=== PATIENT | male | born 1955 | race Caucasian/White ===

== ENCOUNTER 2016-11-10 20:16 | Emergency (ER) | payer OTHER ==
[~2016-11-10] VITALS: Ht 172.7 cm; Wt 81.6 kg
[2016-11-10 20:37] LABS: BASO % 0.5 % (0.0-1.0); EOS # 0.4 10*3/uL (0.0-0.4); EOS % 4.4 % (1.0-4.0); HEMATOCRIT 40.3 % (42.0-52.0); HEMOGLOBIN 13.5 g/dl (14.0-18.0); LYMPH # 3.3 10*3/uL (1.3-4.4); LYMPH % 40.3 % (27.0-41.0); MEAN CELL VOLUME 91.6 fl (80.0-94.0); MEAN CORPUSCULAR HGB 30.7 pg (27.0-31.0); MEAN CORPUSCULAR HGB CONC 33.5 g/dl (33.0-37.0); MEAN PLATELET VOLUME 9.6 fl (9.6-12.3); MONO # 0.7 10*3/uL (0.1-1.0); MONO % 8.2 % (3.0-9.0); NEUT # 3.8 10*3/uL (2.3-7.9); NEUT % 46.2 % (47.0-73.0); PLATELET COUNT AUTOMATED 200 10*3/uL (130-400); RED CELL DISTRI WIDTH 12.9 % (0-14.5); WHITE BLOOD COUNT 8.1 10*3/uL (4.8-10.8)
[2016-11-10 20:46] LABS: PROTHROMBIN TIME 10.7 SECONDS (9.0-12.4)
[2016-11-10 20:54] LABS: ALBUMIN 3.9 gm/dl (3.1-4.5); ALKALINE PHOSPHATASE 42 U/L (45-117); BILIRUBIN, TOTAL 0.3 mg/dl (0.2-1.0); BUN 14 mg/dl (7-24); CARBON DIOXIDE 22 mmol/L (21-32); CHLORIDE 100 mmol/L (98-107); EST GLOM FILT AFRICAN AMERICAN > 60 ml/min; GLUCOSE 77 mg/dL (65-99); POTASSIUM 3.8 mmol/L (3.5-5.1); SGOT/AST 18 IU/L (3-35); SGPT/ALT 19 U/L (12-78); SODIUM 136 mmol/L (136-145); TOTAL PROTEIN 7.2 gm/dL (6.4-8.2)
[2016-11-10 20:55] LABS: TROPONIN I < 0.015 ng/ml (<0.045)
[2016-11-10 21:33] LABS: BILIRUBIN NEGATIVE (NEGATIVE); BLOOD NEGATIVE (NEGATIVE); CLARITY CLEAR (CLEAR); COLOR YELLOW (YELLOW); GLUCOSE NEGATIVE (NEGATIVE); KETONE NEGATIVE (NEGATIVE); LEUKO ESTERASE NEGATIVE (NEGATIVE); NITRITE NEGATIVE (NEGATIVE); PH 5.5 (5.0-9.0); PROTEIN NEGATIVE (NEGATIVE); SPECIFIC GRAVITY <= 1.005 (1.005-1.030); UROBILINOGEN 0.2 E.U./dl (0.2-1.0)
[2016-11-10 21:41] LABS: RBC 0-2 rbc/hpf (0-2); URINE AMPHETAMINES < 1000 (1000ng/ml); URINE BARBITURATES < 200 (200ng/ml); URINE COCAINE < 300 (300ng/ml)
== END 2016-11-10 22:02 | disposition left against medical advice (07) ==
LOC: ED 20:16
PROVIDERS: Emergency Medicine Emergency Medical Services
DX: S09.93XA Unspecified injury of face, initial encounter (principal); F10.129 Alcohol abuse with intoxication, unspecified; W18.39XA Other fall on same level, initial encounter; Y93.9 Activity, unspecified; Y92.89 Other specified places as the place of occurrence of the external cause; Y99.9 Unspecified external cause status

== ENCOUNTER 2017-05-09 15:30 | Emergency (ER) | payer OTHER ==
[~2017-05-09] VITALS: Ht 182.8 cm; Wt 77.1 kg
[2017-05-09 15:52] LABS: BASO % 0.3 % (0.0-1.0); EOS # 0.3 10*3/uL (0.0-0.4); EOS % 2.3 % (1.0-4.0); HEMATOCRIT 41.4 % (42.0-52.0); HEMOGLOBIN 14.3 g/dl (14.0-18.0); LYMPH # 2.2 10*3/uL (1.3-4.4); LYMPH % 18.3 % (27.0-41.0); MEAN CELL VOLUME 90.8 fl (80.0-94.0); MEAN CORPUSCULAR HGB 31.4 pg (27.0-31.0); MEAN CORPUSCULAR HGB CONC 34.5 g/dl (33.0-37.0); MEAN PLATELET VOLUME 10.5 fl (9.6-12.3); MONO # 1.3 10*3/uL (0.1-1.0); MONO % 10.5 % (3.0-9.0); NEUT # 8.4 10*3/uL (2.3-7.9); NEUT % 68.4 % (47.0-73.0); PLATELET COUNT AUTOMATED 235 10*3/uL (130-400); RED BLOOD COUNT 4.56 10*6/uL (4.50-5.90); RED CELL DISTRI WIDTH 12.8 % (0-14.5); WHITE BLOOD COUNT 12.3 10*3/uL (4.8-10.8)
[2017-05-09 16:23] LABS: ACT PARTIAL THROMBO TIME 24.4 SECONDS (20.8-31.5)
[2017-05-09 16:28] LABS: ALBUMIN 4.2 gm/dl (3.1-4.5); ALKALINE PHOSPHATASE 41 U/L (45-117); BUN 29 mg/dl (7-24); CHLORIDE 99 mmol/L (98-107); CREATININE 1.75 mg/dL (0.70-1.30); LIPASE 167 U/L (73-393); POTASSIUM 4.2 mmol/L (3.5-5.1); SGOT/AST 23 IU/L (3-35); SGPT/ALT 22 U/L (12-78); SODIUM 133 mmol/L (136-145); TOTAL PROTEIN 7.3 gm/dL (6.4-8.2)
[2017-05-09 16:29] LABS: ACETAMINOPHEN (TYLENOL) < 2.0 ug/ml (10-30)
[2017-05-09 16:36] LABS: ETHYL ALCOHOL < 3.0 mg/dl (<3)
[2017-05-09 17:20] LABS: BILIRUBIN NEGATIVE (NEGATIVE); BLOOD 2+ (NEGATIVE); CLARITY CLEAR (CLEAR); COLOR YELLOW (YELLOW); GLUCOSE NEGATIVE (NEGATIVE); KETONE NEGATIVE (NEGATIVE); LEUKO ESTERASE NEGATIVE (NEGATIVE); NITRITE NEGATIVE (NEGATIVE); PH 5.5 (5.0-9.0); UROBILINOGEN 0.2 E.U./dl (0.2-1.0)
[2017-05-09] MEDS ORDERED: Bactrim DS PO (17:38)
[2017-05-09] MEDS ORDERED: PYRIDIUM200 M1 PO (17:38)
== END 2017-05-09 18:56 | disposition home or self-care (01) ==
LOC: ED 15:30
PROVIDERS: Nurse Practitioner Family
DX: R33.9 Retention of urine, unspecified (principal); R03.0 Elevated blood-pressure reading, without diagnosis of hypertension

== ENCOUNTER 2017-05-22 09:28 | Emergency (ER) | payer OTHER ==
[~2017-05-22] VITALS: Ht 182.8 cm; Wt 82.6 kg
[~2017-05-22 09:28] MED LIST: Bactrim DS PO; PYRIDIUM200 M1 PO
[2017-05-22 10:30] LABS: BILIRUBIN NEGATIVE (NEGATIVE); BLOOD NEGATIVE (NEGATIVE); CLARITY CLEAR (CLEAR); COLOR YELLOW (YELLOW); GLUCOSE NEGATIVE (NEGATIVE); KETONE NEGATIVE (NEGATIVE); LEUKO ESTERASE NEGATIVE (NEGATIVE); NITRITE NEGATIVE (NEGATIVE); SPECIFIC GRAVITY <= 1.005 (1.005-1.030); UROBILINOGEN 0.2 E.U./dl (0.2-1.0)
[2017-05-22 10:47] LABS: BACTERIA TRACE
[2017-05-22] MEDS ORDERED: Bactrim DS PO (10:54)
== END 2017-05-22 11:21 | disposition home or self-care (01) ==
LOC: ED 09:28
PROVIDERS: Nurse Practitioner Family
DX: R33.9 Retention of urine, unspecified (principal); R03.0 Elevated blood-pressure reading, without diagnosis of hypertension; F10.10 Alcohol abuse, uncomplicated; Z79.899 Other long term (current) drug therapy

== ENCOUNTER → 2017-05-29 | Outpatient (CLI) | payer OTHER ==
[2017-05-29 12:01] LABS: BASO % 0.9 % (0.0-1.0); EOS # 0.2 10*3/uL (0.0-0.4); EOS % 4.7 % (1.0-4.0); HEMOGLOBIN 12.1 g/dl (14.0-18.0); LYMPH # 1.4 10*3/uL (1.3-4.4); LYMPH % 30.3 % (27.0-41.0); MEAN CELL VOLUME 94.1 fl (80.0-94.0); MEAN CORPUSCULAR HGB CONC 31.8 g/dl (33.0-37.0); MEAN PLATELET VOLUME 10.2 fl (9.6-12.3); MONO # 0.4 10*3/uL (0.1-1.0); MONO % 7.9 % (3.0-9.0); NEUT # 2.6 10*3/uL (2.3-7.9); PLATELET COUNT AUTOMATED 212 10*3/uL (130-400); RED BLOOD COUNT 4.04 10*6/uL (4.50-5.90); RED CELL DISTRI WIDTH 12.3 % (0-14.5); WHITE BLOOD COUNT 4.7 10*3/uL (4.8-10.8)
[2017-05-29 12:53] LABS: ALBUMIN 4.2 gm/dl (3.1-4.5); CREATININE 2.28 mg/dL (0.70-1.30); POTASSIUM 3.9 mmol/L (3.5-5.1); TOTAL PROTEIN 7.7 gm/dL (6.4-8.2)
== END | disposition home or self-care (01) ==
LOC: LAB 01:50 → RESCLI 01:50
DX: D40.0 Neoplasm of uncertain behavior of prostate (principal); R31.9 Hematuria, unspecified

== ENCOUNTER → 2017-06-05 | Outpatient (CLI) | payer OTHER | END | disposition home or self-care (01) | LOC: CT 10:29 | DX: N13.30 Unspecified hydronephrosis (principal); K44.9 Diaphragmatic hernia without obstruction or gangrene; N13.4 Hydroureter; K42.9 Umbilical hernia without obstruction or gangrene ==

== ENCOUNTER 2017-06-15 11:25 | Emergency (ER) | payer OTHER ==
[~2017-06-15] VITALS: Ht 167.6 cm; Wt 83.9 kg
[2017-06-15] MEDS ORDERED: PERCOCET 5-3251 EACH PO (11:36)
[2017-06-15] MEDS ORDERED: LISINOPRIL5 MG PO (11:36)
[2017-06-15] MEDS ORDERED: TAMSULOSIN HCL0.4 MG PO (11:37)
[2017-06-15] MEDS ORDERED: PROSCAR5 M1 PO (11:37)
== END 2017-06-15 12:28 | disposition home or self-care (01) ==
LOC: ED 11:25
DX: Z46.6 Encounter for fitting and adjustment of urinary device (principal); R03.0 Elevated blood-pressure reading, without diagnosis of hypertension; Z79.899 Other long term (current) drug therapy

== ENCOUNTER → 2017-06-24 | Outpatient (CLI) | payer OTHER ==
[~2017-06-24] MED LIST changes: +LISINOPRIL5 MG PO; +PERCOCET 5-3251 EACH PO; +PROSCAR5 M1 PO; +TAMSULOSIN HCL0.4 MG PO
[2017-06-24 14:43] LABS: BASO # 0.1 10*3/uL (0.0-0.1); BASO % 0.6 % (0.0-1.0); EOS # 0.8 10*3/uL (0.0-0.4); EOS % 9.8 % (1.0-4.0); HEMATOCRIT 40.9 % (42.0-52.0); HEMOGLOBIN 13.4 g/dl (14.0-18.0); LYMPH # 2.2 10*3/uL (1.3-4.4); LYMPH % 26.7 % (27.0-41.0); MEAN CELL VOLUME 93.4 fl (80.0-94.0); MEAN CORPUSCULAR HGB 30.6 pg (27.0-31.0); MEAN CORPUSCULAR HGB CONC 32.8 g/dl (33.0-37.0); MEAN PLATELET VOLUME 10.4 fl (9.6-12.3); MONO # 0.7 10*3/uL (0.1-1.0); NEUT # 4.6 10*3/uL (2.3-7.9); NEUT % 54.4 % (47.0-73.0); PLATELET COUNT AUTOMATED 293 10*3/uL (130-400); RED BLOOD COUNT 4.38 10*6/uL (4.50-5.90); RED CELL DISTRI WIDTH 12.8 % (0-14.5); WHITE BLOOD COUNT 8.4 10*3/uL (4.8-10.8)
[2017-06-24 15:02] LABS: CREATININE 1.85 mg/dL (0.70-1.30); POTASSIUM 5.6 mmol/L (3.5-5.1); TOTAL PROTEIN 7.5 gm/dL (6.4-8.2)
[2017-06-24 15:08] LABS: VITAMIN D, 25-HYDROXY 17.7 ng/mL (30-100)
[2017-06-24 15:31] LABS: FREE T4 0.8 ng/dl (0.76-1.46)
== END | disposition home or self-care (01) ==
LOC: RESCLI 03:00
PROVIDERS: Internal Medicine
DX: N13.8 Other obstructive and reflux uropathy (principal); N40.1 Benign prostatic hyperplasia with lower urinary tract symptoms; K44.9 Diaphragmatic hernia without obstruction or gangrene; I10 Essential (primary) hypertension

== ENCOUNTER → 2017-07-03 | Outpatient (CLI) | payer OTHER ==
[2017-07-03 13:53] LABS: BASO % 0.5 % (0.0-1.0); EOS # 0.4 10*3/uL (0.0-0.4); EOS % 6.7 % (1.0-4.0); HEMATOCRIT 35.6 % (42.0-52.0); HEMOGLOBIN 12.2 g/dl (14.0-18.0); LYMPH # 1.6 10*3/uL (1.3-4.4); LYMPH % 25.8 % (27.0-41.0); MEAN CELL VOLUME 90.4 fl (80.0-94.0); MEAN CORPUSCULAR HGB CONC 34.3 g/dl (33.0-37.0); MEAN PLATELET VOLUME 9.9 fl (9.6-12.3); MONO # 0.4 10*3/uL (0.1-1.0); MONO % 6.2 % (3.0-9.0); NEUT # 3.8 10*3/uL (2.3-7.9); NEUT % 60.3 % (47.0-73.0); PLATELET COUNT AUTOMATED 225 10*3/uL (130-400); RED BLOOD COUNT 3.94 10*6/uL (4.50-5.90); RED CELL DISTRI WIDTH 12.3 % (0-14.5); WHITE BLOOD COUNT 6.3 10*3/uL (4.8-10.8)
[2017-07-03 14:22] LABS: ALBUMIN 3.9 gm/dl (3.1-4.5); CREATININE 1.62 mg/dL (0.70-1.30); POTASSIUM 3.5 mmol/L (3.5-5.1); TOTAL PROTEIN 6.9 gm/dL (6.4-8.2)
== END | disposition home or self-care (01) ==
LOC: US 06-28 15:00 → LAB 12:47 → US 13:00
PROVIDERS: Urology
DX: N13.30 Unspecified hydronephrosis (principal); N13.2 Hydronephrosis with renal and ureteral calculous obstruction; I10 Essential (primary) hypertension

== ENCOUNTER 2017-08-13 20:43 | Emergency (ER) | payer OTHER ==
[~2017-08-13] VITALS: Ht 172.7 cm; Wt 81.6 kg
[2017-08-13 21:59] LABS: BASO % 0.5 % (0.0-1.0); EOS # 0.3 10*3/uL (0.0-0.4); EOS % 3.9 % (1.0-4.0); HEMATOCRIT 36.9 % (42.0-52.0); HEMOGLOBIN 12.6 g/dl (14.0-18.0); LYMPH # 2.4 10*3/uL (1.3-4.4); LYMPH % 30.3 % (27.0-41.0); MEAN CELL VOLUME 91.1 fl (80.0-94.0); MEAN CORPUSCULAR HGB 31.1 pg (27.0-31.0); MEAN CORPUSCULAR HGB CONC 34.1 g/dl (33.0-37.0); MEAN PLATELET VOLUME 9.9 fl (9.6-12.3); MONO # 0.5 10*3/uL (0.1-1.0); MONO % 6.2 % (3.0-9.0); NEUT # 4.7 10*3/uL (2.3-7.9); NEUT % 58.8 % (47.0-73.0); PLATELET COUNT AUTOMATED 201 10*3/uL (130-400); RED BLOOD COUNT 4.05 10*6/uL (4.50-5.90); RED CELL DISTRI WIDTH 12.8 % (0-14.5); WHITE BLOOD COUNT 7.9 10*3/uL (4.8-10.8)
[2017-08-13 22:15] LABS: ALBUMIN 4.1 gm/dl (3.1-4.5); ALKALINE PHOSPHATASE 43 U/L (45-117); BUN 21 mg/dl (7-24); CHLORIDE 96 mmol/L (98-107); CREATININE 1.21 mg/dL (0.70-1.30); POTASSIUM 3.6 mmol/L (3.5-5.1); SGOT/AST 14 IU/L (3-35); SGPT/ALT 15 U/L (12-78); SODIUM 132 mmol/L (136-145); TOTAL PROTEIN 7.2 gm/dL (6.4-8.2)
[2017-08-13 22:20] LABS: TROPONIN I < 0.015 ng/ml (<0.045)
== END 2017-08-14 09:36 | disposition home or self-care (01) ==
LOC: ED 20:43
PROVIDERS: Emergency Medicine Emergency Medical Services
DX: S00.83XA Contusion of other part of head, initial encounter (principal); F10.129 Alcohol abuse with intoxication, unspecified; Z79.899 Other long term (current) drug therapy; W19.XXXA Unspecified fall, initial encounter; Y93.89 Activity, other specified; Y92.89 Other specified places as the place of occurrence of the external cause; Y99.9 Unspecified external cause status; Y90.9 Presence of alcohol in blood, level not specified

== ENCOUNTER 2018-07-11 09:36 | Emergency (ER) | payer OTHER ==
[~2018-07-11] VITALS: Wt 74.8 kg
[2018-07-11 10:03] LABS: BASO % 0.5 % (0.0-1.0); EOS # 0.5 10*3/uL (0.0-0.4); EOS % 7.8 % (1.0-4.0); HEMATOCRIT 48.7 % (42.0-52.0); LYMPH # 1.6 10*3/uL (1.3-4.4); LYMPH % 24.3 % (27.0-41.0); MEAN CELL VOLUME 94.6 fl (80.0-94.0); MEAN CORPUSCULAR HGB 31.1 pg (27.0-31.0); MEAN CORPUSCULAR HGB CONC 32.9 g/dl (33.0-37.0); MEAN PLATELET VOLUME 10.3 fl (9.6-12.3); MONO # 0.6 10*3/uL (0.1-1.0); MONO % 9.6 % (3.0-9.0); NEUT # 3.7 10*3/uL (2.3-7.9); NEUT % 57.5 % (47.0-73.0); PLATELET COUNT AUTOMATED 197 10*3/uL (130-400); RED BLOOD COUNT 5.15 10*6/uL (4.50-5.90); RED CELL DISTRI WIDTH 12.6 % (0-14.5); WHITE BLOOD COUNT 6.4 10*3/uL (4.8-10.8)
[2018-07-11 10:15] LABS: ALBUMIN 4.2 gm/dl (3.1-4.5); ALKALINE PHOSPHATASE 62 U/L (45-117); BUN 27 mg/dl (7-24); CHLORIDE 104 mmol/L (98-107); CREATININE 1.37 mg/dL (0.70-1.30); POTASSIUM 4.5 mmol/L (3.5-5.1); SGOT/AST 17 IU/L (3-35); SGPT/ALT 23 U/L (12-78); SODIUM 138 mmol/L (136-145)
[2018-07-11] MEDS ORDERED: PROVENTIL HFA6.7 GM INH (10:56)
[2018-07-11] MEDS ORDERED: PREDNISONE20 M1 PO (10:56)
[2018-07-11] MEDS ORDERED: VIBRAMYCIN100 MG PO (10:56)
== END 2018-07-11 11:14 | disposition home or self-care (01) ==
LOC: ED 09:36
PROVIDERS: Emergency Medicine
DX: J40 Bronchitis, not specified as acute or chronic (principal)

== ENCOUNTER 2020-12-03 18:24 | Emergency (ER) | payer OTHER ==
[~2020-12-03] VITALS: Wt 86.2 kg
[~2020-12-03 18:24] MED LIST changes: +PREDNISONE20 M1 PO; +PROVENTIL HFA6.7 GM INH; +VIBRAMYCIN100 MG PO
[2020-12-03] MEDS ORDERED: SEPTDS PO ×2 (18:39→18:50)
== END 2020-12-03 19:02 | disposition home or self-care (01) ==
LOC: ED 18:24
DX: L02.414 Cutaneous abscess of left upper limb (principal); L03.114 Cellulitis of left upper limb; I10 Essential (primary) hypertension; Z79.2 Long term (current) use of antibiotics; Z79.899 Other long term (current) drug therapy

== ENCOUNTER → 2021-02-23 | Outpatient (CLI) | payer OTHER ==
[~2021-02-23] MED LIST changes: +SEPTDS PO
== END | disposition home or self-care (01) ==
LOC: CT 10:00
PROVIDERS: ATTEND Nurse Practitioner Primary Care
DX: R41.0 Disorientation, unspecified (principal)

== ENCOUNTER 2021-10-20 15:38 | Emergency (ER) | payer OTHER ==
[~2021-10-20] VITALS: Ht 182.8 cm; Wt 80.7 kg
[2021-10-20 16:57] LABS: BASO % 0.4 % (0.0-1.0); EOS # 0.3 10*3/uL (0.0-0.4); EOS % 3.4 % (1.0-4.0); HEMATOCRIT 35.9 % (42.0-52.0); LYMPH % 27.7 % (27.0-41.0); MEAN CELL VOLUME 87.6 fl (80.0-94.0); MEAN CORPUSCULAR HGB 28.8 pg (27.0-31.0); MEAN CORPUSCULAR HGB CONC 32.9 g/dl (33.0-37.0); MEAN PLATELET VOLUME 9.4 fl (9.6-12.3); MONO # 0.6 10*3/uL (0.1-1.0); MONO % 8.6 % (3.0-9.0); NEUT # 4.4 10*3/uL (2.3-7.9); NEUT % 59.8 % (47.0-73.0); PLATELET COUNT AUTOMATED 192 10*3/uL (130-400); RED CELL DISTRI WIDTH 13.2 % (0-14.5); WHITE BLOOD COUNT 7.3 10*3/uL (4.8-10.8)
[2021-10-20 17:08] LABS: ACT PARTIAL THROMBO TIME 29.1 SECONDS (20.0-32.1)
[2021-10-20 17:23] LABS: ALKALINE PHOSPHATASE 57 U/L (45-117); BUN 18 mg/dl (7-24); CHLORIDE 103 mmol/L (98-107); CREATININE 1.21 mg/dL (0.70-1.30); POTASSIUM 3.9 mmol/L (3.5-5.1); SGOT/AST 22 IU/L (3-35); SGPT/ALT 25 U/L (12-78); SODIUM 134 mmol/L (136-145); TOTAL PROTEIN 6.8 gm/dL (6.4-8.2)
== END 2021-10-20 18:20 | disposition left against medical advice (07) ==
LOC: ED 15:38
PROVIDERS: Family Medicine
DX: S01.81XA Laceration without foreign body of other part of head, initial encounter (principal); Y08.89XA Assault by other specified means, initial encounter; Y93.89 Activity, other specified; Y92.89 Other specified places as the place of occurrence of the external cause; Y99.8 Other external cause status

== ENCOUNTER → 2023-08-26 | Outpatient (CLI) | payer OTHER | END | disposition home or self-care (01) | LOC: RAD 10:58 | PROVIDERS: ATTEND Internal Medicine | DX: R06.02 Shortness of breath (principal); R05.9 Cough, unspecified ==

== ENCOUNTER → 2023-12-09 | Outpatient (CLI) | payer OTHER | END | disposition home or self-care (01) | LOC: CT 15:43 | PROVIDERS: ATTEND Internal Medicine | DX: S09.90XA Unspecified injury of head, initial encounter (principal); X58.XXXA Exposure to other specified factors, initial encounter; Y93.89 Activity, other specified; Y92.89 Other specified places as the place of occurrence of the external cause; Y99.8 Other external cause status ==

== ENCOUNTER 2024-01-17 16:11 | Emergency (ER) | payer OTHER ==
[~2024-01-17] VITALS: Ht 175.2 cm
[2024-01-17] MEDS ORDERED: Albuterol Sulfate 2.5 MG/3 ML VIAL NEB ONE (16:40)
[2024-01-17 16:52] LABS: BASO # 0.1 10*3/uL (0.0-0.1); BASO % 0.7 % (0.0-1.0); EOS # 1.1 10*3/uL (0.0-0.4); EOS % 12.6 % (1.0-4.0); HEMATOCRIT 42.7 % (42.0-52.0); LYMPH % 22.9 % (27.0-41.0); MEAN CELL VOLUME 96.4 fl (80.0-94.0); MEAN CORPUSCULAR HGB 30.9 pg (27.0-31.0); MEAN CORPUSCULAR HGB CONC 32.1 g/dl (33.0-37.0); MEAN PLATELET VOLUME 9.9 fl (9.6-12.3); MONO # 0.9 10*3/uL (0.1-1.0); NEUT # 4.6 10*3/uL (2.3-7.9); NEUT % 53.6 % (47.0-73.0); PLATELET COUNT AUTOMATED 205 10*3/uL (130-400); RED BLOOD COUNT 4.43 10*6/uL (4.50-5.90); WHITE BLOOD COUNT 8.6 10*3/uL (4.8-10.8)
[2024-01-17 17:10] LABS: BUN 18 mg/dl (9-23); CHLORIDE 105 mmol/L (98-107); POTASSIUM 4.1 mmol/L (3.4-5.1)
[2024-01-17] MEDS ORDERED: LEVOFLOXACIN750 M2 PO (17:24)
[2024-01-17] MEDS ORDERED: VENT7GM INH (17:24)
[2024-01-17] MEDS ORDERED: LEVOFLOXACIN 150 ML IV ONE (17:25)
== END 2024-01-17 18:16 | disposition home or self-care (01) ==
LOC: ED 16:11
PROVIDERS: Emergency Medicine
DX: J18.9 Pneumonia, unspecified organism (principal); Z20.822 Contact with and (suspected) exposure to COVID-19; I10 Essential (primary) hypertension; F10.10 Alcohol abuse, uncomplicated

== ENCOUNTER 2024-05-23 15:26 | Emergency (ER) | payer OTHER ==
[~2024-05-23 15:26] MED LIST changes: +AMLODIPINE BES2.5 MG PO; +AMLODIPINE BESYL5 MG PO; +BREYNA 160-4.10.3 GM INH; +DOXYCYCLINE HY100 M3 PO; +Ipratropium Brom3 ML INH; +LEVOFLOXACIN750 M2 PO; +OMNICEF300 MG PO; +PREDNISONE10 MG PO; +PREDNISONE5 MG PO; +SPIRIVA -- 3018 MCG INH; +VENT7GM INH; +ZITHROMAX250 MG PO
[2024-05-23] MEDS ORDERED: Ondansetron Hydrochloride 4 MG/2 ML VIAL IV ONE (15:50)
[2024-05-23] MEDS ORDERED: SODIUM CHLORIDE 0.9% 1,000 ML IV ONE ×2 (15:50→16:42)
[2024-05-23] MEDS ORDERED: ceFAZolin sodium/sodium chlor 10 ML IV ONE (15:50)
[2024-05-23] MEDS ORDERED: fentaNYL CITRATE/PF 50 MCG/ML SYRINGE IV ONE (15:50)
[2024-05-23] MEDS ORDERED: Tdap Vaccine 0.5 ML SYR (Adult Vaccine) IM ONE (15:50)
[2024-05-23 16:04] LABS: HEMATOCRIT 35.5 % (42.0-52.0); MANUAL DIFF REFLEX YES; MEAN CELL VOLUME 93.4 fl (80.0-94.0); MEAN CORPUSCULAR HGB 31.6 pg (27.0-31.0); MEAN CORPUSCULAR HGB CONC 33.8 g/dl (33.0-37.0); MEAN PLATELET VOLUME 12.4 fl (9.6-12.3); PLATELET COUNT AUTOMATED 373 10*3/uL (130-400); RED CELL DISTRI WIDTH 14.6 % (0-14.5); WHITE BLOOD COUNT 11.9 10*3/uL (4.8-10.8)
[2024-05-23 16:32] LABS: PLATELET SUFFICIENCY NORMAL (NORMAL); TOTAL CELLS COUNTED 100 #CELLS
[2024-05-23 16:35] LABS: POLYCHROMASIA SLIGHT
== END 2024-05-23 16:47 | disposition short-term general hospital (02) ==
LOC: ED 15:26
PROVIDERS: Emergency Medicine
DX: S62.667A Nondisplaced fracture of distal phalanx of left little finger, initial encounter for closed fracture (principal); S61.217A Laceration without foreign body of left little finger without damage to nail, initial encounter; J44.9 Chronic obstructive pulmonary disease, unspecified; W26.8XXA Contact with other sharp object(s), not elsewhere classified, initial encounter; Y93.89 Activity, other specified; Y92.89 Other specified places as the place of occurrence of the external cause; Y99.8 Other external cause status

== ENCOUNTER → 2024-07-30 | Outpatient (CLI) | payer OTHER | END | disposition home or self-care (01) | LOC: RAD 09:37 | PROVIDERS: ATTEND Internal Medicine | DX: M16.12 Unilateral primary osteoarthritis, left hip (principal); M25.552 Pain in left hip ==

== ENCOUNTER 2024-08-12 10:44 | Emergency (ER) | payer OTHER ==
[~2024-08-12] VITALS: Ht 172.7 cm; Wt 81.6 kg
[2024-08-12] MEDS ORDERED: methylPREDNISolone sod succ 125 MG VIAL IM ONE (11:05)
[2024-08-12] MEDS ORDERED: Albuterol Sulf/Ipratropium 3 ML VIAL NEB ONE (11:05)
[2024-08-12 11:30] LABS: BASO # 0.1 10*3/uL (0.0-0.1); BASO % 1.1 % (0.0-1.0); EOS % 17.2 % (1.0-4.0); HEMATOCRIT 43.4 % (42.0-52.0); MEAN CELL VOLUME 93.9 fl (80.0-94.0); MEAN CORPUSCULAR HGB 29.7 pg (27.0-31.0); MEAN CORPUSCULAR HGB CONC 31.6 g/dl (33.0-37.0); MEAN PLATELET VOLUME 9.7 fl (9.6-12.3); MONO # 0.5 10*3/uL (0.1-1.0); MONO % 8.3 % (3.0-9.0); NEUT # 2.9 10*3/uL (2.3-7.9); PLATELET COUNT AUTOMATED 263 10*3/uL (130-400); RED BLOOD COUNT 4.62 10*6/uL (4.50-5.90); WHITE BLOOD COUNT 5.6 10*3/uL (4.8-10.8)
[2024-08-12 11:51] LABS: BUN 16 mg/dl (9-23); CHLORIDE 105 mmol/L (98-107); POTASSIUM 4.3 mmol/L (3.4-5.1)
[2024-08-12] MEDS ORDERED: MELOXICAM7.5 MG PO (12:40)
[2024-08-12] MEDS ORDERED: BREYNA 160-4.10.3 GM INH (12:43)
[2024-08-12] MEDS ORDERED: AVPAK AZITHROM250 M1 PO (13:53)
[2024-08-12] MEDS ORDERED: PREDNISONE50 MG PO (13:53)
== END 2024-08-12 14:01 | disposition home or self-care (01) ==
LOC: ED 10:44
PROVIDERS: Physician Assistant Medical
DX: S09.8XXA Other specified injuries of head, initial encounter (principal); J44.1 Chronic obstructive pulmonary disease with (acute) exacerbation; R06.02 Shortness of breath; Z20.822 Contact with and (suspected) exposure to COVID-19; I12.9 Hypertensive chronic kidney disease with stage 1 through stage 4 chronic kidney disease, or unspecified chronic kidney disease; N18.9 Chronic kidney disease, unspecified; W00.0XXA Fall on same level due to ice and snow, initial encounter; Y93.89 Activity, other specified; Y92.89 Other specified places as the place of occurrence of the external cause; Y99.8 Other external cause status

== ENCOUNTER 2024-09-03 00:49 | Emergency (ER) | payer OTHER ==
[~2024-09-03 00:49] MED LIST changes: +AVPAK AZITHROM250 M1 PO; +MELOXICAM7.5 MG PO; +PREDNISONE50 MG PO
[2024-09-03] MEDS ORDERED: EPINEPHrine Hydrochloride 1 MG/10 ML SYR IV ONE (21:59)
== END 2024-09-03 05:28 ==
LOC: ED 00:53
DX: I46.9 Cardiac arrest, cause unspecified (principal); Z79.899 Other long term (current) drug therapy; Z79.2 Long term (current) use of antibiotics